=== PATIENT | female | born 1940 | race Caucasian/White ===

== ENCOUNTER 2017-04-15 15:06 | Inpatient (IN) | payer OTHER, BC ==
[~2017-04-15] VITALS: Ht 165.1 cm; Wt 70.4 kg
[2017-04-15 16:20] LABS: HEMATOCRIT 38.5 % (36.0-46.0); MCH 28.4 PG (29.0-34.0); MCHC 35.1 G/DL (30.0-36.0); MCV 81.1 FL (83-99); MEAN PLAT.VOLUME 10.3 uM^3 (9.5-12.4); PLATELET COUNT 213 K/uL (156-360); RBC DIS.WIDTH-CV 12.4 % (11.8-14.6); RBC DIS.WIDTH-SD 36.3 % (39-53); RED BLOOD COUNT 4.75 M/uL (3.80-5.20); WHITE BLOOD COUNT 6.1 K/uL (4.1-10.2)
[2017-04-15 16:28] LABS: CHLORIDE 85 mEq/L (99-109); POTASSIUM 3.6 mEq/L (3.7-5.4); SODIUM 122 mEq/L (136-147)
[2017-04-15 16:30] LABS: GLUCOSE 107 mg/dL (70-99)
[2017-04-15 16:31] LABS: ANION GAP 13 MEQ/L (2-14)
[2017-04-15 16:32] LABS: TOTAL BILIRUBIN 0.7 mg/dL (0.0-1.0)
[2017-04-15 16:33] LABS: ALKALINE PHOSPHATASE 74 IU/L (3-129)
[2017-04-15 16:34] LABS: GFR ESTIMATE (CALCULATED) > 59 mL/min/
[2017-04-15 16:35] LABS: UREA NITROGEN (BUN) 7 mg/dL (9-23)
[2017-04-15] MEDS ORDERED: LOPRESSOR50 MG PO (17:51)
[2017-04-15] MEDS ORDERED: RANITIDINE HCL150 MG PO (17:52)
[2017-04-15] MEDS ORDERED: CHLORTHALIDONE50 MG PO (17:52)
[2017-04-15] MEDS ORDERED: FLONASE16 G1 BOTH NARES (17:52)
[2017-04-15] MEDS ORDERED: ALTACE10 MG PO (17:52)
[2017-04-15] MEDS ORDERED: SIMVASTATIN40 MG PO (17:52)
[2017-04-15] MEDS ORDERED: PREVACID30 MG PO (17:53)
[2017-04-15] MEDS ORDERED: ASPIR 8181 M1 PO (17:53)
[2017-04-15] MEDS ORDERED: ZYRTEC10 M3 PO (17:53)
[2017-04-15] MEDS ORDERED: CENTRUM SILVER1 EAC3 PO (17:54)
[2017-04-15] MEDS ORDERED: CALCIUM 600 +1 EAC2 PO (17:54)
[2017-04-15] MEDS ORDERED: TYLENOL EXTRA500 MG PO (17:54)
[2017-04-15] MEDS ORDERED: MAGNESIUM400 M1 PO ×2 (17:54)
[2017-04-15 18:21] LABS: ADD MIUA? NO; BILIRUBIN NEGATIVE; BLOOD NEGATIVE; COLOR COLORLESS ((YELLOW)); GLUCOSE (STRIP) NEGATIVE; KETONES NEGATIVE; LEUKOCYTES NEGATIVE; NITRITE NEGATIVE; PROTEIN (STRIP) NEGATIVE; SPECIFIC GRAVITY 1.003 (1.000-1.030); UROBILINOGEN 0.2 MG/DL (0.2-1.0)
[2017-04-15 18:28] LABS: UCUL ADDED? NO
[2017-04-15 21:54] LABS: CHLORIDE 91 mEq/L (99-109); SODIUM 127 mEq/L (136-147)
[2017-04-15 21:55] LABS: GLUCOSE 142 mg/dL (70-99)
[2017-04-15 21:57] LABS: ANION GAP 14 MEQ/L (2-14)
[2017-04-15 21:59] LABS: GFR ESTIMATE (CALCULATED) > 59 mL/min/
[2017-04-15 22:00] LABS: UREA NITROGEN (BUN) 6 mg/dL (9-23)
[2017-04-15 22:26] LABS: TROP-I INTERPRETATION NEGATIVE; TROPONIN-I < 0.01 ng/mL (0.0-0.30)
[2017-04-15 22:40] VITALS: BP 153/69
[2017-04-16] VITALS (8 sets, daily range): BP systolic 116–181; BP diastolic 65–84
[2017-04-16 00:45] LABS: CHLORIDE 89 mEq/L (99-109); POTASSIUM 2.7 mEq/L (3.7-5.4); SODIUM 125 mEq/L (136-147)
[2017-04-16 00:48] LABS: ANION GAP 12 MEQ/L (2-14)
[2017-04-16 00:50] LABS: GFR ESTIMATE (CALCULATED) > 59 mL/min/
[2017-04-16 00:51] LABS: UREA NITROGEN (BUN) 6 mg/dL (9-23)
[2017-04-16 00:54] LABS: GLUCOSE 94 mg/dL (70-99)
[2017-04-16 07:26] LABS: ANION GAP 9 MEQ/L (2-14); CHLORIDE 92 MEQ/L (99-109); GFR ESTIMATE (CALCULATED) > 59 mL/min/; GLUCOSE 96 mg/dL (70-99); MAGNESIUM 1.5 mg/dl (1.3-2.7); SAMPLE HEMOLYSIS CHECK 0; SAMPLE ICTERIC CHECK 0; SAMPLE LIPEMIA CHECK 0; SODIUM 130 MEQ/L (136-147); UREA NITROGEN (BUN) 5 mg/dL (9-23)
[2017-04-16 07:31] LABS: POTASSIUM 3.9 MEQ/L (3.7-5.4)
[2017-04-16 12:51] LABS: ANION GAP 10 MEQ/L (2-14); CHLORIDE 92 MEQ/L (99-109); GFR ESTIMATE (CALCULATED) > 59 mL/min/; GLUCOSE 115 mg/dL (70-99); POTASSIUM 4.4 MEQ/L (3.7-5.4); SAMPLE HEMOLYSIS CHECK 0; SAMPLE ICTERIC CHECK 0; SAMPLE LIPEMIA CHECK 0; SODIUM 128 MEQ/L (136-147); UREA NITROGEN (BUN) 6 mg/dL (9-23)
[2017-04-17 03:38] VITALS: BP 166/75
[2017-04-17 07:25] VITALS: BP 149/67
[2017-04-17 07:37] LABS: HEMATOCRIT 36.4 % (36.0-46.0); MCH 28.9 PG (29.0-34.0); MCHC 35.4 G/DL (30.0-36.0); MCV 81.4 FL (83-99); MEAN PLAT.VOLUME 10.3 uM^3 (9.5-12.4); PLATELET COUNT 201 K/uL (156-360); RBC DIS.WIDTH-CV 12.5 % (11.8-14.6); RED BLOOD COUNT 4.47 M/uL (3.80-5.20); WHITE BLOOD COUNT 6.5 K/uL (4.1-10.2)
[2017-04-17 08:04] LABS: ANION GAP 11 MEQ/L (2-14); CHLORIDE 85 MEQ/L (99-109); GFR ESTIMATE (CALCULATED) > 59 mL/min/; GLUCOSE 90 mg/dL (70-99); POTASSIUM 3.6 MEQ/L (3.7-5.4); SAMPLE HEMOLYSIS CHECK 0; SAMPLE ICTERIC CHECK 0; SAMPLE LIPEMIA CHECK 0; UREA NITROGEN (BUN) 6 mg/dL (9-23)
[2017-04-17 08:05] LABS: SODIUM 120 MEQ/L (136-147)
[2017-04-17 09:31] LABS: ANION GAP 11 MEQ/L (2-14); CHLORIDE 85 MEQ/L (99-109); GFR ESTIMATE (CALCULATED) > 59 mL/min/; GLUCOSE 100 mg/dL (70-99); POTASSIUM 3.6 MEQ/L (3.7-5.4); SAMPLE HEMOLYSIS CHECK 0; SAMPLE ICTERIC CHECK 0; SAMPLE LIPEMIA CHECK 0; SODIUM 120 MEQ/L (136-147); UREA NITROGEN (BUN) 7 mg/dL (9-23)
[2017-04-17 11:18] VITALS: BP 164/76
[2017-04-17 15:31] VITALS: BP 147/67
[2017-04-17 15:41] LABS: ANION GAP 12 MEQ/L (2-14); CHLORIDE 81 MEQ/L (99-109); GFR ESTIMATE (CALCULATED) > 59 mL/min/; GLUCOSE 111 mg/dL (70-99); POTASSIUM 3.4 MEQ/L (3.7-5.4); SAMPLE HEMOLYSIS CHECK 0; SAMPLE ICTERIC CHECK 0; SAMPLE LIPEMIA CHECK 0; UREA NITROGEN (BUN) 6 mg/dL (9-23)
[2017-04-17 16:04] LABS: SODIUM 117 MEQ/L (136-147)
[2017-04-17 16:39] LABS: MAGNESIUM 1.5 mg/dl (1.3-2.7)
[2017-04-17 19:41] VITALS: BP 127/59
[2017-04-17 23:53] VITALS: BP 135/60
[2017-04-18 03:49] VITALS: BP 118/56
[2017-04-18 06:51] LABS: ANION GAP 9 MEQ/L (2-14); CHLORIDE 88 MEQ/L (99-109); GFR ESTIMATE (CALCULATED) > 59 mL/min/; GLUCOSE 93 mg/dL (70-99); POTASSIUM 3.9 MEQ/L (3.7-5.4); SAMPLE HEMOLYSIS CHECK 0; SAMPLE ICTERIC CHECK 0; SAMPLE LIPEMIA CHECK 0; SODIUM 125 MEQ/L (136-147); UREA NITROGEN (BUN) 6 mg/dL (9-23); URIC ACID 2.7 mg/dL (3.1-9.2)
[2017-04-18 07:47] VITALS: BP 118/59
[2017-04-18 09:03] LABS: INTERNAL CONTROL VALID? YES
[2017-04-18 09:34] LABS: C DIFF TOXIN NEGATIVE (NEGATIVE)
[2017-04-18 09:43] LABS: PROBE CHECK PASS; SPECIMEN PROCESSING CONTROL PASS
[2017-04-18 10:33] LABS: HPCA INDEX 0.16
[2017-04-18 11:38] VITALS: BP 128/60
[2017-04-18 14:26] LABS: ANION GAP 10 MEQ/L (2-14); CHLORIDE 86 MEQ/L (99-109); GFR ESTIMATE (CALCULATED) > 59 mL/min/; GLUCOSE 111 mg/dL (70-99); POTASSIUM 3.4 MEQ/L (3.7-5.4); SAMPLE HEMOLYSIS CHECK 0; SAMPLE ICTERIC CHECK 0; SAMPLE LIPEMIA CHECK 0; SODIUM 122 MEQ/L (136-147); UREA NITROGEN (BUN) 9 mg/dL (9-23)
[2017-04-18 15:55] VITALS: BP 133/64
[2017-04-18 19:27] VITALS: BP 114/57
[2017-04-19 00:02] VITALS: BP 137/62
[2017-04-19 04:09] VITALS: BP 129/56
[2017-04-19 06:52] LABS: ANION GAP 10 MEQ/L (2-14); CHLORIDE 93 MEQ/L (99-109); GFR ESTIMATE (CALCULATED) > 59 mL/min/; GLUCOSE 94 mg/dL (70-99); POTASSIUM 3.8 MEQ/L (3.7-5.4); SAMPLE HEMOLYSIS CHECK 0; SAMPLE ICTERIC CHECK 0; SAMPLE LIPEMIA CHECK 0; UREA NITROGEN (BUN) 10 mg/dL (9-23)
[2017-04-19 06:56] LABS: SODIUM 130 MEQ/L (136-147)
[2017-04-19 07:32] VITALS: BP 139/62
[2017-04-19 12:07] VITALS: BP 135/65
[2017-04-19 17:28] VITALS: BP 128/60
[2017-04-19 19:56] VITALS: BP 138/67
[2017-04-20 00:07] VITALS: BP 149/69
[2017-04-20 03:37] VITALS: BP 158/69
[2017-04-20 07:37] LABS: ANION GAP 10 MEQ/L (2-14); CHLORIDE 97 MEQ/L (99-109); GFR ESTIMATE (CALCULATED) > 59 mL/min/; GLUCOSE 93 mg/dL (70-99); MAGNESIUM 1.7 mg/dl (1.3-2.7); SAMPLE HEMOLYSIS CHECK 0; SAMPLE ICTERIC CHECK 0; SAMPLE LIPEMIA CHECK 0; SODIUM 133 MEQ/L (136-147); UREA NITROGEN (BUN) 13 mg/dL (9-23)
[2017-04-20 08:13] VITALS: BP 140/90
[2017-04-20 11:42] VITALS: BP 121/58
[2017-04-20] MEDS ORDERED: ANTIVERT25 MG PO (14:11)
[2017-04-20] MEDS ORDERED: LOPRESSOR25 MG PO (14:11)
[2017-04-20] MEDS ORDERED: DOCUSATE SODIU100 MG PO (14:11)
[2017-04-20] MEDS ORDERED: SUMATRIPTAN SUC25 MG PO (14:11)
[2017-04-20] MEDS ORDERED: LIDOCARE1 EACH TP (14:11)
[2017-04-20] MEDS ORDERED: BUTALB-APAP-CA1 EACH PO (14:11)
[2017-04-20] MEDS ORDERED: ZOFRAN ODT8 MG PO (14:12)
[2017-04-20] MEDS ORDERED: NIFEDIPINE ER30 MG PO (14:22)
[2017-04-20] MEDS ORDERED: LEVOTHYROXINE25 MCG PO (16:31)
[2017-04-20] MEDS ORDERED: ZOLPIDEM TARTRAT5 MG PO (16:45)
== END 2017-04-20 17:06 | disposition home or self-care (01) | DRG 641 ==
LOC: EME 15:06 → EDOF 21:16 → 2EAST 21:16 → ENRESERV 21:17 → 2EAST 22:30
PROVIDERS: Emergency Medicine; Hospitalist; Internal Medicine; Internal Medicine Nephrology
DX: E87.1 Hypo-osmolality and hyponatremia (principal); E86.9 Volume depletion, unspecified; I47.2 Ventricular tachycardia; K21.9 Gastro-esophageal reflux disease without esophagitis; T50.905A Adverse effect of unspecified drugs, medicaments and biological substances, initial encounter; I10 Essential (primary) hypertension; E78.5 Hyperlipidemia, unspecified; K52.9 Noninfective gastroenteritis and colitis, unspecified; E87.6 Hypokalemia; I27.2 Other secondary pulmonary hypertension; K22.70 Barrett's esophagus without dysplasia; M19.90 Unspecified osteoarthritis, unspecified site; I49.3 Ventricular premature depolarization; G43.909 Migraine, unspecified, not intractable, without status migrainosus; K57.30 Diverticulosis of large intestine without perforation or abscess without bleeding; K44.9 Diaphragmatic hernia without obstruction or gangrene; E03.9 Hypothyroidism, unspecified; I73.9 Peripheral vascular disease, unspecified; Z80.0 Family history of malignant neoplasm of digestive organs; Z85.828 Personal history of other malignant neoplasm of skin; Z82.49 Family history of ischemic heart disease and other diseases of the circulatory system; Z82.5 Family history of asthma and other chronic lower respiratory diseases
CPT/HCPCS: 70450; 70470; 70491; 71010; 74177; 80048; 80048 91; 80053; 80069; 81003; 82272; 82436; 82533 91; 83630; 83735; 83930; 83935; 84133; 84295; 84300; 84439; 84443; 84481; 84484; 84550; 85027; 86803; 87177; 87329; 87493; 87506; 90686; 93005; 93306; 99281; 99285; J0780; J1200; J1644; J2060; J2405; J3480; J7030